=== PATIENT | male | born 1975 | race Caucasian/White ===

== ENCOUNTER 2019-11-30 19:26 | Emergency (ER) | payer OTHER ==
[2019-11-30] MEDS ORDERED: Ketorolac 30 MG/ML SDV IVPUSH ONE (19:54)
[2019-11-30] MEDS ORDERED: Sodium Chloride 0.9% 10 ML Syringe FLUSH PRN (20:36)
[2019-11-30] MEDS ORDERED: Iopamidol 755 Mg/ML 100 ML Bottle IV ONE (21:02)
--- NOTE | 2019-11-30 21:59 | EDM.PDOC ---
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, inc'd with DB, felt better with his L hand behind his head, had tenderness to palpation, felt better after Toradol no f/c/d, no n/v works as medic with 5 internal tours, now is stationed locally his and children are home, he comes in with his mother smokes 1 ppd - Related Data Allergies Allergy/AdvReac Type Severity Reaction Status Date / Time No Known Allergies Allergy Verified 11/30/19 21:13 Home Meds: Home Meds .Crestor 1 tab PO ASDIRECTED 11/30/19 [History] Apixaban [Eliquis] 5 mg PO BID #60 tablet 11/30/19 [Rx] Omeprazole 20 mg PO DAILY 11/30/19 [History] Past Medical History - Past Surgical History HEENT Surgical History: Reports: Other (See Below) Other HEENT Surgeries/Procedures: Jaw reconstruction. Removal of thyroglossal cyst. GI Surgical History: Reports: Appendectomy, Hernia, Abdominal Musculoskeletal Surgical History: Reports: Shoulder Surgery Social & Family History - Tobacco Use Smoking Status *Q: Current Every Day Smoker Years of Tobacco use: 25 Packs/Tins Daily: 1 ED ROS GENERAL - Review of Systems Review Of Systems: See Below Constitutional: Reports: No Symptoms HEENT: Reports: No Symptoms Respiratory: Reports: Pleuritic Chest Pain. Denies: Shortness of Breath, Wheezing, Cough, Sputum Cardiovascular: Reports: No Symptoms Endocrine: Reports: No Symptoms GI/Abdominal: Reports: No Symptoms : Reports: No Symptoms Musculoskeletal: Reports: Other (R calf pain and swell) Skin: Reports: No Symptoms Neurological: Reports: No Symptoms Psychiatric: Reports: No Symptoms Hematologic/Lymphatic: Reports: No Symptoms Immunologic: Reports: No Symptoms ED EXAM, GENERAL - Physical Exam Exam: See Below Exam Limited By: Other (sitting with L hand behind is head, alert, conversant, no cough, not ill) General Appearance: Alert, WD/WN, No Apparent Distress Ears: Normal Canal, Normal TMs Nose: Normal Inspection, Normal Mucosa, No Blood Throat/Mouth: Normal Inspection, Normal Lips, Normal Teeth, Normal Gums, Normal Oropharynx, Normal Voice, No Airway Compromise Head: Atraumatic, Normocephalic Neck: Normal Inspection, Supple, Non-Tender, Full Range of Motion. No: Lymphadenopathy (R), Lymphadenopathy (L) Respiratory/Chest: Lungs Clear, Normal Breath Sounds, No Accessory Muscle Use, Chest Non-Tender, Other (takes less than deep breath d/t discomfort, does have a good 1+ tender at the L upper chest between the MCLand AAL, pt winces when he presses on his chest himself, no cough, no dyspnea) Cardiovascular: Regular Rate, Rhythm, No Edema, No Murmur GI/Abdominal: Soft, Non-Tender, No Distention Back Exam: Normal Inspection, Full Range of Motion Extremities: Normal Inspection, Normal Range of Motion, Non-Tender, No Pedal Edema, Other (R calf wnl, no edema, no cords, no Homans, NT, no red, muscular, symmetric with L calf) Neurological: Alert, Oriented, CN II-XII Intact, Normal Cognition, Normal Gait, No Motor/Sensory Deficits Psychiatric: Normal Affect, Normal Mood Skin Exam: Warm Lymphatic: No Adenopathy Course - Vital Signs Last Recorded V/S: Last Vital Signs Temp 36.6 C 11/30/19 19:45 Pulse Resp BP Pulse Ox - Orders/Labs/Meds Orders: Active Orders 24 hr Category Date Time Status Ang Chest [CT] Stat Exams 11/30/19 21:15 Taken Apixaban [Eliquis] Med 11/30/19 23:04 Once 10 mg PO NOW ONE Sodium Chloride 0.9% [Saline Flush] Med 11/30/19 20:36 Active 10 ml FLUSH ASDIRECTED PRN Medication Orders Sodium Chloride (Saline Flush) 10 ml FLUSH ASDIRECTED PRN PRN Reason: keep vein opn Last Admin: 11/30/19 20:36 Dose: 10 ml Labs: Laboratory Tests 11/30/19 11/30/19 11/30/19 Range/Units 19:33 19:35 19:35 WBC 10.6 (4.5-12.0) X10-3/uL RBC 5.22 (4.30-5.75) x10(6)uL Hgb 15.7 (13.5-17.8) g/dL Hct 46.7 (30.0-51.3) % MCV 89.3 (80-96) fL MCH 30.1 (27.7-33.6) pg MCHC 33.7 (32.2-35.4) g/dL RDW 12.9 (11.5-15.5) % Plt Count 248 (125-369) X10(3)uL MPV 7.2 L (7.4-10.4) fL Neut % (Auto) 69.0 (46-82) % Lymph % (Auto) 23.2 (13-37) % [place] % (Auto) 5.8 (4-12) % Eos % (Auto) 1 (1.0-5.0) % Baso % (Auto) 1 (0-2) % Neut # (Auto) 7.4 (1.6-8.3) # Lymph # (Auto) 2.4 (0.6-5.0) # [place] # (Auto) 0.6 (0.0-1.3) # Eos # (Auto) 0.1 (0.0-0.8) # Baso # (Auto) 0.1 (0.0-0.2) # PT 9.9 (9.0-11.1) sec INR 1.02 (1.00-1.24) D-Dimer, Quantitative 1.79 H (0.0-0.59) mg/LFEU Sodium 145 (135-145) mmol/L Potassium 3.6 (3.5-5.3) mmol/L Chloride 105 (100-110) mmol/L Carbon Dioxide 31 (21-32) mmol/L BUN 13 (7-18) mg/dL Creatinine 0.9 (0.70-1.30) mg/dL Est Cr Clr Drug Dosing TNP Estimated GFR (MDRD) > 60 (>60) BUN/Creatinine Ratio 14.4 (9-20) Glucose 114 (80-116) mg/dL Calcium 8.2 L (8.6-10.2) mg/dL Total Bilirubin 0.4 (0.1-1.3) mg/dL AST 17 (5-25) IU/L ALT 25 (12-36) U/L Alkaline Phosphatase 78 (56-112) IU/L Troponin I (4.0-60.3) pg/mL C-Reactive Protein (0.5-0.9) mg/dL Total Protein 7.1 (6.0-8.0) g/dL Albumin 3.4 L (3.5-5.2) g/dL Globulin 3.7 g/dL Albumin/Globulin Ratio 0.9 11/30/19 Range/Units 19:35 WBC (4.5-12.0) X10-3/uL RBC (4.30-5.75) x10(6)uL Hgb (13.5-17.8) g/dL Hct (30.0-51.3) % MCV (80-96) fL MCH (27.7-33.6) pg MCHC (32.2-35.4) g/dL RDW (11.5-15.5) % Plt Count (125-369) X10(3)uL MPV (7.4-10.4) fL Neut % (Auto) (46-82) % Lymph % (Auto) (13-37) % [place] % (Auto) (4-12) % Eos % (Auto) (1.0-5.0) % Baso % (Auto) (0-2) % Neut # (Auto) (1.6-8.3) # Lymph # (Auto) (0.6-5.0) # [place] # (Auto) (0.0-1.3) # Eos # (Auto) (0.0-0.8) # Baso # (Auto) (0.0-0.2) # PT (9.0-11.1) sec INR (1.00-1.24) D-Dimer, Quantitative (0.0-0.59) mg/LFEU Sodium (135-145) mmol/L Potassium (3.5-5.3) mmol/L Chloride (100-110) mmol/L Carbon Dioxide (21-32) mmol/L BUN (7-18) mg/dL Creatinine (0.70-1.30) mg/dL Est Cr Clr Drug Dosing Estimated GFR (MDRD) (>60) BUN/Creatinine Ratio (9-20) Glucose (80-116) mg/dL Calcium (8.6-10.2) mg/dL Total Bilirubin (0.1-1.3) mg/dL AST (5-25) IU/L ALT (12-36) U/L Alkaline Phosphatase (56-112) IU/L Troponin I 4.0 (4.0-60.3) pg/mL C-Reactive Protein 8.0 H* (0.5-0.9) mg/dL Total Protein (6.0-8.0) g/dL Albumin (3.5-5.2) g/dL Globulin g/dL Albumin/Globulin Ratio Meds: Medications Generic Name Dose Route Start Last Admin Trade Name Freq PRN Reason Stop Dose Admin Sodium Chloride 10 ml 11/30/19 20:36 11/30/19 20:36 Saline Flush FLUSH 10 ml ASDIRECTED PRN Administration keep vein opn Discontinued Medications Generic Name Dose Route Start Last Admin Trade Name Freq PRN Reason Stop Dose Admin Iopamidol 100 ml 11/30/19 21:02 11/30/19 21:03 Isovue-370 (76%) IV 11/30/19 21:03 81 ml ONETIME ONE Administration Ketorolac Tromethamine 30 mg 11/30/19 19:54 11/30/19 20:35 Toradol IVPUSH 11/30/19 19:55 30 mg ONETIME ONE Administration - Re-Assessments/Exams Free Text/Narrative Re-Assessment/Exam: 11/30/19 23:[address], d/w pt and his mother including 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 Departure - Departure Time of Disposition: 23:04 Disposition: Home, Self-Care 01 Condition: Good Clinical Impression: Acute pulmonary embolism, Enlarged lymph nodes, Nicotine dependence, Emphysema of lung, Right calf pain - Discharge Information *PRESCRIPTION DRUG MONITORING PROGRAM REVIEWED*: Not Applicable *COPY OF PRESCRIPTION DRUG MONITORING REPORT IN PATIENT DEANDRE: Not Applicable Prescriptions: Apixaban [Eliquis] 5 mg PO BID #60 tablet Instructions: Pulmonary Embolism, Lymphadenopathy, Steps to Quit Smoking Referrals: PCP,None [Primary Care Provider] - Forms: ED Department Discharge Additional Instructions: To thin the blood and decrease the risk of new blood clots, take apixaban 5 mg 2 tabs 2 times a day for 1 week, then 1 tab once a day. For pain, take acetaminophen 500 mg 2 tabs 4 times a day for 1-2 days. For pain, use heat to chest wall for 10 minutes several times a day as needed. No work tomorrow. Rest. Limit activity. Return to hospital at 8:30 AM tomorrow for doppler ulltrasound of both lower extremities. Make an appointment in the next week with a gifts officer to discuss additional testing to determine the cause of the blood clots. You also have enlarged lymph nodes behind the sternum (in the mediastinum). Sometimes these are reactive and inflammatory. Sometimes they can be related to a more serious condition such as a lymphoma. When you see the gifts officer, ask for his/her recommendations on how to best follow up on the lymph nodes, as sometimes they need to be biopsed. Return to Emergency Department at any time if you are feeling worse in any way, including increasing chest and shortness of breath. Sepsis Event Note - Evaluation Sepsis Screening Result: No Definite Risk - Focused Exam Vital Signs: Vital Signs Temp 11/30/19 19:45 36.6 C Date Exam was Performed: 11/30/19 Time Exam was Performed: 23:04 - My Orders Last 24 Hours: My Active Orders 11/30/19 20:36 Sodium Chloride 0.9% [Saline Flush] 10 ml FLUSH ASDIRECTED PRN 11/30/19 21:15 Ang Chest [CT] Stat 11/30/19 23:04 Apixaban [Eliquis] 10 mg PO NOW ONE - Assessment/Plan Last 24 Hours: My Active Orders 11/30/19 20:36 Sodium Chloride 0.9% [Saline Flush] 10 ml FLUSH ASDIRECTED PRN 11/30/19 21:15 Ang Chest [CT] Stat 11/30/19 23:04 Apixaban [Eliquis] 10 mg PO NOW ONE
[2019-11-30] MEDS ORDERED: Apixaban 5 MG Tab PO ONE (23:04)
== END 2019-11-30 23:35 | disposition home or self-care (01) ==
LOC: FB.ED 19:26
DX: I26.99 Other pulmonary embolism without acute cor pulmonale (principal); J43.9 Emphysema, unspecified; R59.9 Enlarged lymph nodes, unspecified; M79.661 Pain in right lower leg; F17.210 Nicotine dependence, cigarettes, uncomplicated
CPT/HCPCS: 36415; 71275; 80053; 84484; 85025; 85379; 85610; 86140; 87804; 87804-59; 93010; 96374; 99284-25; 99285; A9270-GY; J1885; Q9967